=== PATIENT | male | born 1950 | race Caucasian/White ===

== ENCOUNTER → 2018-11-02 | Outpatient (CLI) | payer MEDICARE | END | disposition home or self-care (01) | LOC: CFH 08:40 | PROVIDERS: ATTEND Physician Assistant | DX: S22.32XD Fracture of one rib, left side, subsequent encounter for fracture with routine healing (principal); X58.XXXD Exposure to other specified factors, subsequent encounter | CPT/HCPCS: 71046 ==

== ENCOUNTER 2018-11-23 06:46 | Outpatient (CLI) | payer MEDICARE ==
[2018-11-23] MEDS ORDERED: REGADENOSON 0.4 MG/5 ML SYRINGE ONE (07:31)
[2018-11-27] MEDS ORDERED: METO25TA35 PO (18:12)
[2018-11-27] MEDS ORDERED: LOSA25TA25 PO (18:13)
[2018-11-27] MEDS ORDERED: OMEP10CA4 PO (18:13)
== END 2018-11-23 23:59 | disposition home or self-care (01) ==
LOC: CFH 06:46
PROVIDERS: ATTEND Internal Medicine
DX: I35.8 Other nonrheumatic aortic valve disorders (principal); I10 Essential (primary) hypertension
CPT/HCPCS: 78452; 93017; 93306; A9502; J2785